=== PATIENT | male | born 1955 | race Caucasian/White ===

== ENCOUNTER 2022-02-07 07:10 | Emergency (ER) | payer MEDICARE, BC, SELFPAY ==
[2022-02-07] VITALS (7 sets, daily range): BP systolic 171–204; BP diastolic 86–103; PULSE 62–86; RESP 18–24; TEMP 35.5; O2SAT 85–98; BMI 32.5
[2022-02-07] MEDS: ONDANSETRON 2 MG/ML inj 4 MG IVP (07:30)
--- NOTE | 2022-02-07 07:43 | ED_ITS ---
HPI - General Adult General Time Seen by Provider: 07:43 <Jackie Brady MD - Last Filed: 02/07/22 07:55> Date Seen: 02/07/22 <Jackie Brady MD - Last Filed: 02/07/22 07:55> Chief complaint: Abdominal Pain <Jackie Brady MD - Last Filed: 02/07/22 07:55> Stated complaint: backpain/left side pain/blood in urine/vomiting <Jackie Brady MD - Last Filed: 02/07/22 07:55> Time Seen by Provider: 02/07/22 07:42 <Jackie Brady MD - Last Filed: 02/07/22 07:55> Source: patient and RN notes reviewed <Jackie Brady MD - Last Filed: 02/07/22 07:55> Mode of arrival: ambulatory <Jackie Brady MD - Last Filed: 02/07/22 07:55> Limitations: no limitations <Jackie Brady MD - Last Filed: 02/07/22 07:55> History of Present Illness HPI narrative: Patient is a 66-year-old male that awoke at 3:30 a.m. this morning with severe left flank pain. It is radiating into his left abdomen. There is a constant pain but he gets sharper more intense pains intermittently. He noticed some blood in his urine this morning. The pain has caused him to have nausea and vomiting. No changes in stools otherwise. He has never had a history of kidney stones but after discussing this with him, he recollects. Worry had some chronic right abdominal pain that they thought was from golfing, thought it was musculoskeletal. He is not aware of any family history of kidney stones. He has not otherwise been ill. <Jackie Brady MD - Last Filed: 02/07/22 07:55> Onset (ago): hour(s) <Jackie Brady MD - Last Filed: 02/07/22 07:55> Related Data Home medications: Home Medications Medication Instructions Recorded Confirmed No Known Home Medications 02/07/22 02/07/22 <Jackie Brady MD - Last Filed: 02/07/22 07:55> Allergies/adverse reactions: Allergies Allergy/AdvReac Type Severity Reaction Status Date / Time No Known Drug Allergies Allergy Verified 02/07/22 07:20 <Jackie Brady MD - Last Filed: 02/07/22 07:55> Review of Systems Status of ROS: Reports: 10 or more systems reviewed and unremarkable except as noted in History and below <Jackie Brady MD - Last Filed: 02/07/22 07:55> PFSH PFSH Social History: Social History Smoking Status: Never smoker How often do you have a drink containing alcohol: monthly or less How often do you have six or more drinks on one occasion: Never AUDIT-C Alcohol total score: 1 Non-prescribed substance use: denies use <Jackie Brady MD - Last Filed: 02/07/22 07:55> Exam Const: Vital Signs, click to edit/add: Vital Signs - 24 hr 02/07/22 07:21 02/07/22 08:00 02/07/22 08:25 Temperature 96 F L Pulse Rate [Pulse Oximeter] 68 62 Respiratory Rate 24 20 18 Blood Pressure [Ri ght Upper Arm] 204/103 H 188/90 H 188/89 H Pulse Oximetry 98 85 L 91 Oxygen Delivery Me thod Room Air Room Air Room Air 02/07/22 09:00 02/07/22 09:30 02/07/22 10:00 Temperature Pulse Rate [Pulse Oximeter] 83 79 82 Respiratory Rate 18 Blood Pressure [Ri ght Upper Arm] 171/86 H 182/87 H 177/97 H Pulse Oximetry 96 96 96 Oxygen Delivery Me thod Room Air Room Air Room Air <Jackie Brady MD - Last Filed: 02/07/22 07:55> Vital Signs, click to edit/add: Vital Signs - 24 hr 02/07/22 07:21 02/07/22 08:00 02/07/22 08:25 Temperature 96 F L Pulse Rate [Pulse Oximeter] 68 62 Respiratory Rate 24 20 18 Blood Pressure [Ri ght Upper Arm] 204/103 H 188/90 H 188/89 H Pulse Oximetry 98 85 L 91 Oxygen Delivery Me thod Room Air Room Air Room Air 02/07/22 09:00 02/07/22 09:30 02/07/22 10:00 Temperature Pulse Rate [Pulse Oximeter] 83 79 82 Respiratory Rate 18 Blood Pressure [Ri ght Upper Arm] 171/86 H 182/87 H 177/97 H Pulse Oximetry 96 96 96 Oxygen Delivery Me thod Room Air Room Air Room Air <Tanner Cornell MD - Last Filed: 02/07/22 12:06> Documenting provider has reviewed patient's vital signs: yes <Jackie Brady MD - Last Filed: 02/07/22 07:55> Common normals: oriented x3, no limitations, healthy appearing and alert <Jackie Brady MD - Last Filed: 02/07/22 07:55> General appearance: cooperative and in distress (Is having significant pain) moderate <Jackie Brady MD - Last Filed: 02/07/22 07:55> Nutritional appearance: obese <Jackie Brady MD - Last Filed: 02/07/22 07:55> HENMT: Common normals: normocephalic, head/scalp atraumatic, hearing grossly normal bilaterally, TM's normal bilaterally, external nose normal, moist oral mucous membranes and oropharynx normal <Jackie Brady MD - Last Filed: 02/07/22 07:55> Head and scalp: normocephalic and atraumatic <Jackie Brady MD - Last Filed: 02/07/22 07:55> Nose: external nose normal <Jackie Brady MD - Last Filed: 02/07 07:55> Tympanic membrane: TM's normal bilaterally <Jackie Brady MD - Last Filed: 02/07/22 07:55> Eye: Common normals: PERRL, EOMs intact bilaterally, conjunctivae normal and no scleral icterus <Jackie Brady MD - Last Filed: 02/07/22 07:55> Conjunctiva: conjunctiva(e) normal <Jackie Brady MD - Last Filed: 02/07/22 07:55> Pupil: PERRL <Jackie Brady MD - Last Filed: 02/07/22 07:55> Neck & C-Spine: Common normals: full ROM, no lymphadenopathy, supple, no meningeal signs, no JVD and thyroid normal <Jackie Brady MD - Last Filed: 02/07/22 07:55> Thyroid: thyroid normal <Jackie Brady MD - Last Filed: 02/07/22 07:55> Resp: Common normals: normal respiratory effort, no retractions, no use of a ccessory muscles and clear to auscultation bilaterally <Jackie Alvarado MD - Last Filed: 02/07/22 07:55> Auscultation: clear to auscultation bilaterally <Jackie Brady MD - Last Filed: 02/07/22 07:55> Cardio: Common normals: no JVD, regular rate, regular rhythm, S1 normal heart sound, S2 normal heart sound, no gallops, no clicks and no murmurs <Jackie Brady MD - Last Filed: 02/07/22 07:55> Rate: regular rate <MD Joe Brandon Last Filed: 02/07/22 07:55> Rhythm: regular rhythm <Jackie Brady MD - Last Filed: 02/07/22 07:55> Heart sounds: S1 normal and S2 normal <MD Joe Brandon Last Filed: 02/07/22 07:55> GI: Common normals: Normal to inspection, nondistended, normoactive bowel sounds present, soft to palpation, no hepatosplenomegaly and no masses <MD Joe Brandon Last Filed: 02/07/22 07:55> Palpation: soft and no hepatosplenomegaly <MD Joe Brandon Last Filed: 02/07/22 07:55> Other: Has left CVA tenderness, is generally tender throughout the distribution on his left side but no rebound or guarding. I feel no masses. <Jackie Alvarado MD - Last Filed: 02/07/22 07:55> Extremity: Common normals: normal to inspection, full ROM, normal capillary refill, no joint enlargement, no clubbing, cyanosis or edema, no calf tenderness and no pedal edema <Jackie Brady MD - Last Filed: 02/07/22 07:55> Neuro: Common normals: oriented x3 <Jackie Brady MD - Last Filed: 02/07/22 07:55> Sensorium/orientation: alert <Jackie Brady MD - Last Filed: 02/07/22 07:55> Meningeal signs: no meningeal signs <Jackie Brady MD - Last Filed: 02/07/22 07:55> Course Course Hospital Course: This patient would presumably have renal colic as my primary differential. Will be getting lab work as well as urinalysis. I will order a noncontrast CT. We will initiate a L of IV fluids, 4 mg IV Zofran and 15 mg IV Toradol. If he needs further pain management it is likely he will need to progress to narcotics and will need to monitor with pulse oximetry done. Will work on pain management and is identified in the etiology of his current pain. <Jackie Brady MD - Last Filed: 02/07/22 07:55> Reevaluation(s) Reevaluation #1: Patient has done well, we did a bladder scan that showed he had greater than 200 mL, full of blood clots, I put a 3 way catheter and irrigated this out. He has got clear returns now. Her currently just watching him for the next hour if this is stable, after my discussion with [place], we have a follow-up appointment with Urology. I will put him on some pain medication hydrocodone along with some Zofran for nausea. If he has any problems with unable to into the is bladder, increasing bleeding, he will come back and be seen. They were comfortable with this plan. <Tanner Cornell MD - Last Filed: 02/07/22 12:06> Time: 12:01 <Tanner Cornell MD - Last Filed: 02/07/22 12:06> Vital Signs Vital signs: Initial Vital Signs Temperature 96 F L 02/07/22 07:21 Temperature Source Temporal Artery Scan 02/07/22 07:21 Respiratory Rate 24 02/07/22 07:21 Blood Pressure 204/103 H 02/07/22 07:21 Blood Pressure Mean 136 02/07/22 07:21 Blood Pressure Position Supine 02/07/22 07:21 Pulse Oximetry 98 02/07/22 07:21 Oxygen Delivery Method 02/07/22 07:21 Vital Signs Temperature 96 F L 02/07/22 07:21 Respiratory Rate 24 02/07/22 07:21 Blood Pressure 204/103 H 02/07/22 07:21 Pulse Oximetry 98 02/07/22 07:21 Oxygen Delivery Method 02/07/22 07:21 Temperature 96 F L 02/07/22 07:21 Pulse Rate 82 02/07/22 10:00 Respiratory Rate 18 02/07/22 09:00 Blood Pressure 177/97 H 02/07/22 10:00 Pulse Oximetry 96 02/07/22 10:00 Oxygen Delivery Method 02/07/22 10:00 <Jackie Brady MD - Last Filed: 02/07/22 07:55> Initial Vital Signs Temperature 96 F L 02/07/22 07:21 Temperature Source Temporal Artery Scan 02/07/22 07:21 Respiratory Rate 24 02/07/22 07:21 Blood Pressure 204/103 H 02/07/22 07:21 Blood Pressure Mean 136 02/07/22 07:21 Blood Pressure Position Supine 02/07/22 07:21 Pulse Oximetry 98 02/07/22 07:21 Oxygen Delivery Method 02/07/22 07:21 Vital Signs Temperature 96 F L 02/07/22 07:21 Respiratory Rate 24 02/07/22 07:21 Blood Pressure 204/103 H 02/07/22 07:21 Pulse Oximetry 98 02/07/22 07:21 Oxygen Delivery Method 02/07/22 07:21 Temperature 96 F L 02/07/22 07:21 Pulse Rate 82 02/07/22 10:00 Respiratory Rate 18 02/07/22 09:00 Blood Pressure 177/97 H 02/07/22 10:00 Pulse Oximetry 96 02/07/22 10:00 Oxygen Delivery Method 02/07/22 10:00 <Tanner Cornell MD - Last Filed: 02/07/22 12:06> Medical Decision Making Lab Data Labs: Lab Results 02/07/22 02/07/22 02/07/22 Range/Units 07:30 07:30 07:30 WBC 7.90 (4.50-11.00) K/uL RBC 5.00 (4.30-5.90) m/uL Hgb 14.8 (13.5-17.5) gm/dL Hct 42.6 (37.0-53.0) % MCV 85 (80-100) fL MCH 30 (26-34) pg MCHC 35 (32-36) gm/dL RDW Coeff of [place] 13.8 (11.5-15.5) % Plt Count 355 (140-440) K/uL Neut % (Auto) 77.2 H (42.0-72.0) % Lymph % (Auto) 14.2 L (20-44) % [place] % (Auto) 7.3 (0.0-11.0) % Eos % (Auto) 0.5 (0.0-7.0) % Baso % (Auto) 0.4 (0.0-3.0) % Neut # (Auto) 6.10 (1.7-7.0) K/uL Lymph # (Auto) 1.10 (0.90-2.90) K/uL [place] # (Auto) 0.60 (0.00-0.90) K/UL Eos # (Auto) 0.04 (0.00-0.50) K/uL Baso # (Auto) 0.03 (0.00-0.30) K/uL Abs Immat Gran (auto) 0.03 (0.00-0.30) K/uL Sodium 140 (135-149) mmol/L Potassium 4.2 (3.6-5.1) mmol/L Chloride 103 (96-114) mmol/L Carbon Dioxide 26 (20-32) mmol/L BUN 17 (7-30) mg/dL Creatinine 1.1 (0.5-1.5) mg/dL Estimated Creat Clear 73.48 Estimated GFR 75 ml/min Glucose 167 H (60-115) mg/dL Lactate Cancelled Calcium 8.7 (8.4-10.6) mg/dL Total Bilirubin 0.4 (0.1-1.5) mg/dL AST 26 (12-35) U/L ALT 20 (4-50) U/L Alkaline Phosphatase 93 (40-150) U/L Total Protein 7.3 (6.0-8.3) g/dL Albumin 4.1 (3.3-5.0) g/dL Urine Color (Yellow) Urine Appearance (Clear) Urine pH (5.0-8.5) Ur Specific [place] (1.000-1.030) Urine Protein (Negative) Urine Glucose (UA) (Negative) Urine Ketones (Negative) Urine Blood (Negative) Urine Nitrite (Negative) Urine Bilirubin (Negative) Urine Urobilinogen (0.2-1.0) Ur Leukocyte Esterase (Negative) Urine RBC (0-2) Urine WBC (0-5) Ur Squamous Epith Cells (None-Few) Amorphous Sediment (None) Urine Bacteria (None) 02/07/22 02/07/22 02/07/22 Range/Units 08:30 10:15 10:38 WBC (4.50-11.00) K/uL RBC (4.30-5.90) m/uL Hgb (13.5-17.5) gm/dL Hct (37.0-53.0) % MCV (80-100) fL MCH (26-34) pg MCHC (32-36) gm/dL RDW Coeff of Vladimir (11.5-15.5) % Plt Count (140-440) K/uL Neut % (Auto) (42.0-72.0) % Lymph % (Auto) (20-44) % [place] % (Auto) (0.0-11.0) % Eos % (Auto) (0.0-7.0) % Baso % (Auto) (0.0-3.0) % Neut # (Auto) (1.7-7.0) K/uL Lymph # (Auto) (0.90-2.90) K/uL [place] # (Auto) (0.00-0.90) K/UL Eos # (Auto) (0.00-0.50) K/uL Baso # (Auto) (0.00-0.30) K/uL Abs Immat Gran (auto) (0.00-0.30) K/uL Sodium (135-149) mmol/L Potassium (3.6-5.1) mmol/L Chloride (96-114) mmol/L Carbon Dioxide (20-32) mmol/L BUN (7-30) mg/dL Creatinine (0.5-1.5) mg/dL Estimated Creat Clear Estimated GFR ml/min Glucose (60-115) mg/dL Lactate 2.6 H 1.9 Calcium (8.4-10.6) mg/dL Total Bilirubin (0.1-1.5) mg/dL AST (12-35) U/L ALT (4-50) U/L Alkaline Phosphatase (40-150) U/L Total Protein (6.0-8.3) g/dL Albumin (3.3-5.0) g/dL Urine Color Red A (Yellow) Urine Appearance Cloudy A (Clear) Urine pH 6.0 (5.0-8.5) Ur Specific [place] 1.010 (1.000-1.030) Urine Protein 3+ A (Negative) Urine Glucose (UA) Negative (Negative) Urine Ketones Negative (Negative) Urine Blood 3+ A (Negative) Urine Nitrite Positive A (Negative) Urine Bilirubin 1+ A (Negative) Urine Urobilinogen 0.2 (0.2-1.0) Ur Leukocyte Esterase 1+ A (Negative) Urine RBC >100 A (0-2) Urine WBC 2-5 (0-5) Ur Squamous Epith Cells Few (None-Few) Amorphous Sediment Few A (None) Urine Bacteria Moderate A (None) <Jackie Brady MD - Last Filed: 02/07/22 07:55> Lab Results 02/07/22 02/07/22 02/07/22 Range/Units 07:30 07:30 07:30 WBC 7.90 (4.50-11.00) K/uL RBC 5.00 (4.30-5.90) m/uL Hgb 14.8 (13.5-17.5) gm/dL Hct 42.6 (37.0-53.0) % MCV 85 (80-100) fL MCH 30 (26-34) pg MCHC 35 (32-36) gm/dL RDW Coeff of Vladimir 13.8 (11.5-15.5) % Plt Count 355 (140-440) K/uL Neut % (Auto) 77.2 H (42.0-72.0) % Lymph % (Auto) 14.2 L (20-44) % [place] % (Auto) 7.3 (0.0-11.0) % Eos % (Auto) 0.5 (0.0-7.0) % Baso % (Auto) 0.4 (0.0-3.0) % Neut # (Auto) 6.10 (1.7-7.0) K/uL Lymph # (Auto) 1.10 (0.90-2.90) K/uL [place] # (Auto) 0.60 (0.00-0.90) K/UL Eos # (Auto) 0.04 (0.00-0.50) K/uL Baso # (Auto) 0.03 (0.00-0.30) K/uL Abs Immat Gran (auto) 0.03 (0.00-0.30) K/uL Sodium 140 (135-149) mmol/L Potassium 4.2 (3.6-5.1) mmol/L Chloride 103 (96-114) mmol/L Carbon Dioxide 26 (20-32) mmol/L BUN 17 (7-30) mg/dL Creatinine 1.1 (0.5-1.5) mg/dL Estimated Creat Clear 73.48 Estimated GFR 75 ml/min Glucose 167 H (60-115) mg/dL Lactate Cancelled Calcium 8.7 (8.4-10.6) mg/dL Total Bilirubin 0.4 (0.1-1.5) mg/dL AST 26 (12-35) U/L ALT 20 (4-50) U/L Alkaline Phosphatase 93 (40-150) U/L Total Protein 7.3 (6.0-8.3) g/dL Albumin 4.1 (3.3-5.0) g/dL Urine Color (Yellow) Urine Appearance (Clear) Urine pH (5.0-8.5) Ur Specific [place] (1.000-1.030) Urine Protein (Negative) Urine Glucose (UA) (Negative) Urine Ketones (Negative) Urine Blood (Negative) Urine Nitrite (Negative) Urine Bilirubin (Negative) Urine Urobilinogen (0.2-1.0) Ur Leukocyte Esterase (Negative) Urine RBC (0-2) Urine WBC (0-5) Ur Squamous Epith Cells (None-Few) Amorphous Sediment (None) Urine Bacteria (None) 02/07/22 02/07/22 02/07/22 Range/Units 08:30 10:15 10:38 WBC (4.50-11.00) K/uL RBC (4.30-5.90) m/uL Hgb (13.5-17.5) gm/dL Hct (37.0-53.0) % MCV (80-100) fL MCH (26-34) pg MCHC (32-36) gm/dL RDW Coeff of Vladimir (11.5-15.5) % Plt Count (140-440) K/uL Neut % (Auto) (42.0-72.0) % Lymph % (Auto) (20-44) % [place] % (Auto) (0.0-11.0) % Eos % (Auto) (0.0-7.0) % Baso % (Auto) (0.0-3.0) % Neut # (Auto) (1.7-7.0) K/uL Lymph # (Auto) (0.90-2.90) K/uL [place] # (Auto) (0.00-0.90) K/UL Eos # (Auto) (0.00-0.50) K/uL Baso # (Auto) (0.00-0.30) K/uL Abs Immat Gran (auto) (0.00-0.30) K/uL Sodium (135-149) mmol/L Potassium (3.6-5.1) mmol/L Chloride (96-114) mmol/L Carbon Dioxide (20-32) mmol/L BUN (7-30) mg/dL Creatinine (0.5-1.5) mg/dL Estimated Creat Clear Estimated GFR ml/min Glucose (60-115) mg/dL Lactate 2.6 H 1.9 Calcium (8.4-10.6) mg/dL Total Bilirubin (0.1-1.5) mg/dL AST (12-35) U/L ALT (4-50) U/L Alkaline Phosphatase (40-150) U/L Total Protein (6.0-8.3) g/dL Albumin (3.3-5.0) g/dL Urine Color Red A (Yellow) Urine Appearance Cloudy A (Clear) Urine pH 6.0 (5.0-8.5) Ur Specific [place] 1.010 (1.000-1.030) Urine Protein 3+ A (Negative) Urine Glucose (UA) Negative (Negative) Urine Ketones Negative (Negative) Urine Blood 3+ A (Negative) Urine Nitrite Positive A (Negative) Urine Bilirubin 1+ A (Negative) Urine Urobilinogen 0.2 (0.2-1.0) Ur Leukocyte Esterase 1+ A (Negative) Urine RBC >100 A (0-2) Urine WBC 2-5 (0-5) Ur Squamous Epith Cells Few (None-Few) Amorphous Sediment Few A (None) Urine Bacteria Moderate A (None) <Tanner Cornell MD - Last Filed: 02/07/22 12:06> Discharge Plan Discharge Clinical Impression: Renal mass, left Abdominal pain Qualifiers: Abdominal location: left upper quadrant Qualified Code(s): R10.12 - Left upper quadrant pain Hematuria Qualifiers: Hematuria type: unspecified type Qualified Code(s): R31.9 - Hematuria, unspecified <Jackie Brady MD - Last Filed: 02/07/22 07:55> Condition: Improved <Jackie Brady MD - Last Filed: 02/07/22 07:55> Instructions: Hematuria (ED), Abdominal Pain (ED) <Jackie Brady MD - Last Filed: 02/07/22 07:55> Additional Instructions: Follow up appointment is scheduled on 02/13 with a 10:45am arrival time. [address] [place] [address] <Jackie Brady MD - Last Filed: 02/07/22 07:55> Prescriptions: No Action No Known Home Medications <Jackie Brady MD - Last Filed: 02/07/22 07:55> Stand Alone Forms: My[facility] Info Instructions <Jackie Brady MD - Last Filed: 02/07/22 07:55>
[2022-02-07] MEDS: 0.9 % SODIUM CHLORIDE 1000 ml 1,000 ML 500 ML IV (07:45)
[2022-02-07] MEDS: KETOROLAC 15 MG/ML inj IVP (07:45)
--- NOTE | 2022-02-07 07:53 | CRLHL7_ITS ---
For Patients: As a result of the Century Cures Act, medical imaging exams and procedure reports are released immediately into your electronic medical record. You may view this report before your referring provider. If you have questions, please contact your health care provider. Indication: LEFT LOWER BACK PAIN, NAUSEA, BLOOD IN URINE Technique: Noncontrast CT abdomen and pelvis Please note that all CT scans at this facility use dose modulation, iterative reconstruction, and/or weight-based dosing when appropriate to reduce radiation dose to as low as reasonably achievable. Comparison: None Findings: A large circumscribed soft tissue mass arises from the upper pole of the left kidney measuring 7.0 x 6.3 cm. Areas of increased density are present within this mass extending into the left renal collecting system and proximal left ureter representing blood products. Perinephric stranding is present. No renal stones. Noncontrast enhanced right kidney appears normal. Normal right ureter. Prostate is mildly prominent. No bladder stones. Sigmoid diverticulosis. No diverticulitis. No bowel obstruction. Noncontrast and liver and gallbladder are normal. Noncontrast enhanced pancreas and spleen are within normal limits for normal adrenal glands. Small hiatal hernia. Lung bases clear. Vascular calcifications. Subcentimeter lymph nodes are present within the left retroperitoneum. No fracture. Impression: Large solid mass arising from the upper pole of the left kidney representing renal cell carcinoma with bleeding into the left renal collecting system and left ureter. Perinephric stranding is present along with subcentimeter left retroperitoneal lymph nodes. No renal stones. Nonemergent contrast enhanced urogram recommended for further characterization. Please note that all CT scans at this facility use dose modulation, iterative reconstruction, and/or weight-based dosing when appropriate to reduce radiation dose to as low as reasonably achievable. Dictated by Srinivasa Dickens MD @ 02/07/2022 8:46:39 AM (Electronically Signed)
--- NOTE | 2022-02-07 07:59 | ED.NURSE ---
Patient noted to desaturate into 60s at rest on cot in semi-fowlers position. Laser Operator asked patient if there's any history of sleep apnea, I'm pretty sure, my has been telling me for years. No formal testing/diagnosis per patient. Dr. Aponte aware. Will continue to monitor.
--- NOTE | 2022-02-07 08:02 | ED.NURSE ---
Critical lab received: lactate 5.3. Dr. Cornell notified. NS is infusing per order, will plan to recheck after fluid administration.
[2022-02-07 08:06] LABS: Basophils Absolute Auto 0.03 K/uL (0.00-0.30); Basophils Percent Auto 0.4 % (0.0-3.0); Eosinophils Absolute Auto 0.04 K/uL (0.00-0.50); Eosinophils Percent Auto 0.5 % (0.0-7.0); Hematocrit 42.6 % (37.0-53.0); Hemoglobin* 14.8 gm/dL (13.5-17.5); Immature Granulocytes Abs Auto 0.03 K/uL (0.00-0.30); Lymphocytes Percent Auto 14.2 % (20-44); Mean Corpuscular HGB Conc 35 gm/dL (32-36); Mean Corpuscular Hemoglobin 30 pg (26-34); Mean Corpuscular Volume 85 fL (80-100); Monocytes Percent Auto 7.3 % (0.0-11.0); Neutrophils Percent Auto 77.2 % (42.0-72.0); Platelet Count* 355 K/uL (140-440); RDW Coefficient of Variation % 13.8 % (11.5-15.5)
[2022-02-07 08:20] LABS: Slide Review Reflex No
--- NOTE | 2022-02-07 08:29 | ED.NURSE ---
Patient attempted to provide urine sample, only scant amount of bloody urine with blood clot for output. Lab is in room for redraw (initial labs hemolized), unable to run urine from what was provided. Will attempt collection again later.
[2022-02-07 08:36] LABS: Lactate* 2.6 mmol/L (0.5-1.9)
[2022-02-07 08:57] LABS: Albumin* 4.1 g/dL (3.3-5.0); Chloride* 103 mmol/L (96-114); Potassium* 4.2 mmol/L (3.6-5.1); Sodium* 140 mmol/L (135-149)
[2022-02-07 09:00] LABS: Alanine Aminotransferase* 20 U/L (4-50); Alkaline Phosphatase* 93 U/L (40-150); Aspartate Amino Transferase* 26 U/L (12-35); Bilirubin Total* 0.4 mg/dL (0.1-1.5); Blood Urea Nitrogen* 17 mg/dL (7-30); Carbon Dioxide* 26 mmol/L (20-32); Creatinine* 1.1 mg/dL (0.5-1.5); Est. Creatinine Clearance* 73.48; Estimated Glomerular Filt Rate 75 ml/min; Glucose* 167 mg/dL (60-115); Total Protein* 7.3 g/dL (6.0-8.3)
[2022-02-07 09:01] LABS: Calcium* 8.7 mg/dL (8.4-10.6)
[2022-02-07] MEDS: 0.9 % SODIUM CHLORIDE 1000 ml 1,000 ML IV (09:33)
[2022-02-07] MEDS: MORPHINE 2 MG/ML inj IVP (10:39)
[2022-02-07 10:40] LABS: Lactate* 1.9 mmol/L (0.5-1.9)
[2022-02-07] MEDS: lidocaine HCL 2 % JELLY (TOP) STERILE 6 ML UR (10:40)
[2022-02-07 10:50] LABS: Appearance Urine Cloudy (Clear); Bilirubin Urine 1+ (Negative); Color Urine Red (Yellow); Glucose Urine Negative (Negative); Ketones Urine Negative (Negative)
[2022-02-07 10:51] LABS: Blood Urine 3+ (Negative); Leukocyte Esterase Urine 1+ (Negative); Nitrite Urine Positive (Negative); Protein Urine 3+ (Negative); RBC Urine >100 (0-2); Urobilinogen Urine 0.2 (0.2-1.0)
[2022-02-07 10:52] LABS: Amorphous Sediment Urine Few; Bacteria Urine Moderate; Squamous Epithelial Cell Urine Few (None-Few)
--- NOTE | 2022-02-07 11:40 | ED.NURSE ---
3000ML CBI completed without difficulty. Urine output now yellow to slight pink. No clots noted. Dr. Cornell aware of results, will clamp CBI and monitor patient's output for the next hour.
--- NOTE | 2022-02-07 12:31 | ED.NURSE ---
Monitoring of white bag reveals 100CC of pale pink urine output. Dr. Cornell notified. Okay to discharge, removed catheter. Follow-up appointment scheduled with [facility] for 02/13, info on dc forms. Instymed for adrian Guadarrama provided with instructions.
== END 2022-02-07 12:30 | disposition home or self-care (01) ==
PROVIDERS: Family Medicine; Emergency Provider Family Medicine
DX: R31.9 Hematuria, unspecified (principal); N28.89 Other specified disorders of kidney and ureter
CPT/HCPCS: 36415; 74176; 80053; 81001; 83605; 85025; 87086; 96374; 96375; 99284; 99285; J1885; J2270; J2405; J7030